=== PATIENT | female | born 1990 ===

== ENCOUNTER 2018-12-09 20:41 | Emergency (ER) | payer SELFPAY ==
[~2018-12-09] VITALS: Ht 172.7 cm; Wt 73.2 kg
[2018-12-09 20:45] VITALS: BP 116/73; PULSE 77; RESP 19; Ht 172.7 cm; Wt 73.2 kg
== END 2018-12-09 23:25 | disposition left against medical advice (07) ==
LOC: FTE 20:41
DX: Z53.21 Procedure and treatment not carried out due to patient leaving prior to being seen by health care provider (principal)